=== PATIENT | female | born 1955 | race Caucasian/White ===

== ENCOUNTER → 2016-11-20 | Outpatient (REF) | payer MEDICAID ==
[~2016-11-20] MED LIST: /AUGM25TA; CIPRO500 PO; CLARITIN10 PO; DIOV80TA; DIOVAN160 PO; DIOVANHCT PO; EXCETAB80 PO; FLAGYL500 PO; HYDR12CA PO; HYDROCHL12 PO; LOSA100T36 PO; MENEST PO; METF500T4 PO; MULTIVIT PO; PREMARI625 PO; PRILOSECOT PO; RANI150T PO; VITA-130 PO; VITATAB11 PO
[2016-11-20 13:08] LABS: INR 0.88
== END ==
LOC: M LAB REF 12:26
PROVIDERS: ATTEND Family Medicine
DX: Z01.818 Encounter for other preprocedural examination (principal); M48.02 Spinal stenosis, cervical region

== ENCOUNTER → 2017-04-04 | Outpatient (CLI) | payer OTHER ==
[~2017-04-04] MED LIST changes: -VITA-130 PO; +VITA500T PO
--- NOTE | 2017-04-04 15:13 | REPMRS ---
Patient History The patient states she has not had a clinical breast exam in over a year. Patient is postmenopausal. Family history of prostate cancer in father at age 50 or over and breast cancer in maternal cousin at age 50 or over. Digital Woman Screen Mammo: April 04, 2017 - Exam #: [id number] Bilateral CC and MLO view(s) were taken. Technologist: Melissa Herrera, Technologist Prior study comparison: February 14, 2016, digital woman screen mammo performed at [facility]. September 08, 2013, digital woman screen mammo performed at [facility]. September 11, 2012, digital woman screen mammo performed at [facility]. FINDINGS: There are scattered fibroglandular densities. There is a stable nodular opacity projecting in the upper outer quadrant on the right. There has been other no change in the appearance of the mammogram from the prior studies. There is a mild amount of scattered fibroglandular density which is fairly symmetric. There is no interval development of dominant mass, architectural distortion, or clustered microcalcification suggestive of malignancy. ASSESSMENT: BI-RADS/ACR category 2 mammogram. Benign finding(s). Recommendation Routine screening mammogram in 1 year (for women over age 40). This mammogram was interpreted with the aid of an FDA-approved computer-aided dectection system. Electronically Signed By: Marshall Smith MD 04/04/17 2513
== END ==
LOC: M WHC 14:21
PROVIDERS: ATTEND Family Medicine
DX: Z12.31 Encounter for screening mammogram for malignant neoplasm of breast (principal); Z78.0 Asymptomatic menopausal state; Z80.3 Family history of malignant neoplasm of breast; R92.8 Other abnormal and inconclusive findings on diagnostic imaging of breast

== ENCOUNTER → 2018-06-19 | Outpatient (CLI) | payer MEDICARE | LOC: M WHC 10:30 | DX: Z12.31 Encounter for screening mammogram for malignant neoplasm of breast (principal) | CPT/HCPCS: 77067 ==

== ENCOUNTER → 2018-08-19 | Outpatient (REF) | payer MEDICARE ==
[2018-08-19 18:08] LABS: INFLUENZA A AMPLIFICATION NEGATIVE (NEGATIVE); INFLUENZA B AMPLIFICATION NEGATIVE (NEGATIVE)
== END ==
LOC: M LAB REF 16:37
DX: J06.9 Acute upper respiratory infection, unspecified (principal)
CPT/HCPCS: 87502

== ENCOUNTER → 2018-11-05 | Outpatient (REF) | payer MEDICARE ==
[~2018-11-05] MED LIST changes: -LOSA100T36 PO; +LOSA100T50 PO
== END ==
LOC: M LAB REF 16:36
PROVIDERS: ATTEND Nurse Practitioner Adult Health
DX: E03.9 Hypothyroidism, unspecified (principal)

== ENCOUNTER 2019-04-06 18:45 | Emergency (ER) | payer MEDICARE ==
[~2019-04-06] VITALS: Ht 165.1 cm; Wt 109.1 kg
[2019-04-06 19:23] LABS: BASO # 0.1 10^3/uL (0.0-0.2); BASO % 0.6 % (0.0-1.0); EOS # 0.4 10^3/uL (0.0-0.50); EOS % 5.4 % (0.0-3.0); HEMATOCRIT 37.4 % (36.0-47.0); HEMOGLOBIN 12.6 g/dl (12.0-15.5); LYMPH # 2.7 10^3/uL (1.5-4.5); LYMPH % 33.2 % (24.0-44.0); MEAN CORPUSCULAR HEMOGLOBIN 29.6 pg (27.0-33.0); MEAN CORPUSCULAR HGB CONC 33.7 g/dl (32.0-36.5); MEAN CORPUSCULAR VOLUME 87.8 fl (80.0-96.0); MONO # 0.8 10^3/uL (0.0-0.8); MONO % 9.6 % (0.0-5.0); NEUTROPHILS # 4.1 10^3/uL (1.8-7.7); NEUTROPHILS % 50.7 % (36.0-66.0); PLATELET COUNT, AUTOMATED 211 10^3/uL (150-450); RED BLOOD COUNT 4.26 10^6/uL (4.00-5.40)
[2019-04-06 19:35] LABS: INR 1.03; PROTHROMBIN TIME 13.2 SECONDS (11.8-14.0)
[2019-04-06 19:36] LABS: PARTIAL THROMBOPLASTIN TIME 26.3 SECONDS (25.0-38.4)
[2019-04-06 19:47] LABS: ALBUMIN 3.6 GM/DL (3.2-5.2); ALT/SGPT 43 U/L (12-78); BILIRUBIN,DIRECT < 0.1 MG/DL (0.0-0.2); BILIRUBIN,TOTAL 0.3 MG/DL (0.2-1.0); BLOOD UREA NITROGEN 15 MG/DL (7-18); CALCIUM LEVEL 9.6 MG/DL (8.8-10.2); CARBON DIOXIDE LEVEL 29 MEQ/L (21-32); CHLORIDE LEVEL 103 MEQ/L (98-107); CK-MB VALUE MASS 3.2 NG/ML (<3.6); CPK CREATINE PHOSPHOKINASE 309 U/L (26-192); CREATININE FOR GFR 0.95 MG/DL (0.55-1.30); GLOMERULAR FILTRATION RATE > 60.0 (>45); GLUCOSE, FASTING 192 MG/DL (70-100); LIPASE 137 U/L (73-393); MB/CK RELATIVE INDEX 1.04 (< OR =4); POTASSIUM SERUM 3.5 MEQ/L (3.5-5.1); SODIUM LEVEL 138 MEQ/L (136-145); TOTAL PROTEIN 6.6 GM/DL (6.4-8.2); TROPONIN I < 0.02 NG/ML (< 0.10)
[2019-04-06] MEDS: NITROGLYCERIN 0.4 MG SUBL TABLET SL PRN ×2 (19:55→20:28)
[2019-04-06] MEDS ORDERED: ISOVUE-370 76% 100ML VIAL (Q9967) As Ordered ONE (20:00)
--- NOTE | 2019-04-06 20:17 | ECGEPIP ---
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
[2019-04-06 20:28] VITALS: BP 137/73
--- NOTE | 2019-04-06 21:31 | REPVR ---
EXAM: CT Angiography Chest With Contrast EXAM DATE/TIME: 04/06/2019 8:07 PM CLINICAL HISTORY: 63 years old, female; Chest pain; Type not specified; Additional info: Pleuritic chest pain, SOB TECHNIQUE: Imaging protocol: Axial computed tomographic angiography images of the chest with intravenous contrast using CT angiography protocol. Coronal and sagittal reformatted images were created and reviewed. 3D rendering: MIP reconstructed images were created and reviewed. Radiation optimization: All CT scans at this facility use at least one of these dose optimization techniques: automated exposure control; mA and/or kV adjustment per patient size (includes targeted exams where dose is matched to clinical indication); or iterative reconstruction. Contrast material: ISOVUE 370; Contrast volume: 75 ml; Contrast route: IV; COMPARISON: CT ANGIO CHEST 05/20/2016 1:19 PM FINDINGS: Pulmonary arteries: No focal pulmonary artery filling defect to suggest acute pulmonary embolus. Aorta: No thoracic aortic aneurysm or dissection. Lungs: Pulmonary vascular/interstitial pattern does not suggest active pulmonary edema. No suspicious lung mass or air space process. No central endobronchial lesion. Pleural space: No pleural effusion or pneumothorax. Heart: No cardiac enlargement or pericardial effusion. Mediastinum: Hiatal hernia measuring 5 cm is present. Liver: Liver is decreased in density, consistent with fatty infiltration. Lymph nodes: Small, nonspecific mediastinal nodes are present. Bones/joints: Multi-level, age-related thoracic degenerative disc disease is present. Soft tissues: Unremarkable. IMPRESSION: 1. No evidence of acute pulmonary embolus. 2. No other acute or concerning focal intrathoracic abnormality. 3. Hiatal hernia, which can be a source of chest pain in the setting of GE reflux Electronically signed by: Moe Mcpherson On 04/06/2019 21:30:58 PM
[2019-04-06] MEDS ORDERED: NITROGLYCERIN 0.4 MG SUBL TABLET SL STA (22:17)
[2019-04-07 01:54] LABS: CK-MB VALUE MASS 2.8 NG/ML (<3.6); CPK CREATINE PHOSPHOKINASE 244 U/L (26-192); MB/CK RELATIVE INDEX 1.15 (< OR =4); TROPONIN I < 0.02 NG/ML (< 0.10)
[2019-04-07 02:24] VITALS: BP 151/67
--- NOTE | 2019-04-07 03:07 | REP ---
Clinical: Acute chest pain . Comparison: 11/05/2018 . Findings: The mediastinum and cardiac silhouette are stable and within normal limits for portable technique. The lung barron are clear without acute consolidation, effusion, or pneumothorax. Skeletal structures are intact. Impression: No acute cardiopulmonary process appreciated. Electronically Signed by Demetrio Patel MD 04/07/2019 02:58 A
--- NOTE | 2019-04-07 05:42 | ECGEPIP ---
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
--- NOTE | 2019-04-07 05:44 | ECGEPIP ---
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
== END 2019-04-07 02:53 | disposition home or self-care (01) ==
LOC: M ED 18:45
DX: R07.9 Chest pain, unspecified (principal); I45.19 Other right bundle-branch block; E11.9 Type 2 diabetes mellitus without complications; I10 Essential (primary) hypertension; F31.9 Bipolar disorder, unspecified; K44.9 Diaphragmatic hernia without obstruction or gangrene; M19.90 Unspecified osteoarthritis, unspecified site; M48.00 Spinal stenosis, site unspecified; Z79.84 Long term (current) use of oral hypoglycemic drugs; Z79.899 Other long term (current) drug therapy; Z88.8 Allergy status to other drugs, medicaments and biological substances; Z88.2 Allergy status to sulfonamides
CPT/HCPCS: 71045; 71275; 80048; 80076; 82550; 82553; 83690; 84484; 85025; 85610; 85730; 93005; 93041; 94760; 99285; Q9967

== ENCOUNTER 2019-09-03 07:38 | Day surgery (SDC) | payer MEDICARE ==
[~2019-09-03] VITALS: Ht 165.1 cm; Wt 108.9 kg
[~2019-09-03 07:38] MED LIST changes: +AMLO5TAB6 PO; +B COTAB3 PO; +BUPR1TAB52 PO; +EQL50TAB2 PO; +EXCETAB33 PO; +GLIM1TAB2 PO; +LAMO300T PO; +METF-791 PO; -METF500T4 PO; +NS 1,000 ML IV ONE; +VITA500079 PO
[2019-09-03] MEDS ORDERED: PROPOFOL 200 MG/20 ML VIAL As Ordered ONE ×2 (08:33→08:35)
--- NOTE | 2019-09-03 08:44 | ROOR ---
Patient Name: Janell Lizama Procedure Date: 09/03/2019 8:15 AM Date of : 1955 Age: 64 Room: [facility] Gender: Female Note Status: Finalized Procedure: Colonoscopy Indications: Screening for colorectal malignant neoplasm Providers: Stanley Sánchez Jr, MD Referring MD: Jason Toribio MD Requesting Provider: Medicines: Propofol per Anesthesia Complications: No immediate complications. Procedure: Pre-Anesthesia Assessment: - Prior to the procedure, a History and Physical was performed, and patient medications and allergies were reviewed. The patient is competent. The risks and benefits of the procedure and the sedation options and risks were discussed with the patient. All questions were answered and informed consent was obtained. Patient identification and proposed procedure were verified by the physician and the nurse in the pre-procedure area and in the procedure room. Mental Status Examination: alert and oriented. Airway Examination: normal oropharyngeal airway and neck mobility. Respiratory Examination: clear to auscultation. CV Examination: normal. ASA Grade Assessment: II - A patient with mild systemic disease. After reviewing the risks and benefits, the patient was deemed in satisfactory condition to undergo the procedure. The anesthesia plan was to use moderate sedation / analgesia (conscious sedation). Immediately prior to administration of medications, the patient was re-assessed for adequacy to receive sedatives. The heart rate, respiratory rate, oxygen saturations, blood pressure, adequacy of pulmonary ventilation, and response to care were monitored throughout the procedure. The physical status of the patient was re-assessed after the procedure. The Colonoscope was introduced through the anus and advanced to the ileocecal valve. The colonoscopy was performed with moderate difficulty due to restricted mobility of the colon. Successful completion of the procedure was aided by using manual pressure, withdrawing and reinserting the scope, straightening and shortening the scope to obtain bowel loop reduction and using scope torsion. The patient tolerated the procedure well. The quality of the bowel preparation was adequate. Findings: The rectum, recto-sigmoid colon, descending colon, transverse colon, ascending colon, cecum and ileocecal valve appeared normal. External and internal hemorrhoids were found during endoscopy. The hemorrhoids were Grade II (internal hemorrhoids that prolapse but reduce spontaneously) and Grade III (internal hemorrhoids that prolapse but require manual reduction). Multiple small-mouthed diverticula were found in the sigmoid colon.Significant angulation and some narrowing in the mid sigmoid colon. Impression: - The rectum, recto-sigmoid colon, descending colon, transverse colon, ascending colon, cecum and ileocecal valve are normal. - External and internal hemorrhoids. - Diverticulosis in the sigmoid colon. - No specimens collected. Recommendation: - Repeat colonoscopy in 10 years for screening purposes. Stanley Sánchez MD Stanley Sánchez Jr, MD 09/03/2019 8:43:10 AM Electronically signed by Stanley Sánchez Jr, MD Number of Addenda: 0 Note Initiated On: 09/03/2019 8:15 AM Estimated Blood Loss: Estimated blood loss: none.
[2019-09-03 09:00] VITALS: BP 178/92
== END 2019-09-03 09:10 | disposition home or self-care (01) ==
LOC: M OPP 07:38
PROVIDERS: ATTEND Surgery
DX: Z12.11 Encounter for screening for malignant neoplasm of colon (principal); K64.2 Third degree hemorrhoids; K57.30 Diverticulosis of large intestine without perforation or abscess without bleeding; E11.9 Type 2 diabetes mellitus without complications; G47.30 Sleep apnea, unspecified; Z79.84 Long term (current) use of oral hypoglycemic drugs; Z79.899 Other long term (current) drug therapy; Z88.2 Allergy status to sulfonamides; Z88.8 Allergy status to other drugs, medicaments and biological substances

== ENCOUNTER → 2019-12-03 | Outpatient (CLI) | payer MEDICARE ==
[~2019-12-03] MED LIST changes: -GLIM1TAB2 PO; +GLIM1TAB4 PO; -NS 1,000 ML IV ONE
--- NOTE | 2019-12-03 10:45 | REPMRS ---
Patient History The patient states she has not had a clinical breast exam in over a year. Family history of prostate cancer at age 50 or over in father, breast cancer at age 50 or over in maternal cousin. 3D TOMOSYNTHESIS WAS PERFORMED. The [facility] lifetime risk for breast cancer is 7.6%. Digital Woman Screen Mammo: December 03, 2019 - Exam #: [id number] Bilateral CC and MLO view(s) were taken. Technologist: RT Macy Prior study comparison: June 19, 2018, bilateral digital woman screen mammo performed at [facility]. April 04, 2017, digital woman screen mammo performed at [facility]. FINDINGS: There are scattered fibroglandular densities. There is a fairly symmetric fibroglandular pattern in both breasts. There has been no interval development of masses, areas of architectural distortion or clusters of microcalcifications typical of malignancy. No significant changes when compared with prior studies. Assessment: BI-RADS/ACR category 2 mammogram. Benign Findings. Recommendation Routine screening mammogram of both breasts in 1 year (for women over age 40). This mammogram was interpreted with the aid of an FDA-approved computer-aided dectection system. Electronically Signed By: Ganesh Frank MD 12/03/19 5501
== END ==
LOC: M WHC 09:52
PROVIDERS: ATTEND Nurse Practitioner Family
DX: Z12.31 Encounter for screening mammogram for malignant neoplasm of breast (principal)

== ENCOUNTER 2020-09-18 19:55 | Emergency (ER) | payer MEDICARE ==
[~2020-09-18] VITALS: Ht 165.1 cm; Wt 110.7 kg
[~2020-09-18 19:55] MED LIST changes: +AMLO1TAB24 PO; -AMLO5TAB6 PO; -METF-791 PO; +METF-838 PO; +VITA-243 PO; -VITA500T PO
[2020-09-18] MEDS ORDERED: FISH1000 PO (20:08)
[2020-09-18] MEDS ORDERED: METOCLOPRAMIDE 10 MG TAB PO ONE (21:15)
[2020-09-18] MEDS ORDERED: ACETAMINOPHEN 500 MG TAB PO ONE (21:15)
--- NOTE | 2020-09-18 21:39 | REPVR ---
PROCEDURE INFORMATION: Exam: CT Head Without Contrast Exam date and time: 09/18/2020 8:58 PM Age: 65 years old Clinical indication: Injury or trauma; Fall; Blunt trauma (contusions or hematomas); Additional info: Fall, hit head TECHNIQUE: Imaging protocol: Computed tomography of the head without contrast. Radiation optimization: All CT scans at this facility use at least one of these dose optimization techniques: automated exposure control; mA and/or kV adjustment per patient size (includes targeted exams where dose is matched to clinical indication); or iterative reconstruction. COMPARISON: CT Head without contrast 05/22/2016 2:26 AM FINDINGS: Brain: Normal. No hemorrhage. Unremarkable white matter. No mass effect. Cerebral ventricles: No ventriculomegaly. Bones/joints: Unremarkable. No acute fracture. Paranasal sinuses: Mucous retention cysts in the maxillary sinuses. Remaining paranasal sinuses are clear. Mastoid air cells: Visualized mastoid air cells are well aerated. Soft tissues: Unremarkable. IMPRESSION: No acute intracranial abnormality. Electronically signed by: Harish Vásquez On 09/18/2020 21:39:30 PM
--- NOTE | 2020-09-18 21:43 | REPVR ---
PROCEDURE INFORMATION: Exam: CT Cervical Spine Without Contrast Exam date and time: 09/18/2020 8:58 PM Age: 65 years old Clinical indication: Injury or trauma; Fall; Blunt trauma; Additional info: Fall, hit head TECHNIQUE: Imaging protocol: Computed tomography images of the cervical spine without contrast. Radiation optimization: All CT scans at this facility use at least one of these dose optimization techniques: automated exposure control; mA and/or kV adjustment per patient size (includes targeted exams where dose is matched to clinical indication); or iterative reconstruction. COMPARISON: MRI-Spine, Cervical with con 05/25/2016 5:42 PM FINDINGS: Bones/joints: Prior ACDF at C5-C6 and C6-C7. Normal vertebral body alignment. No acute fracture. Discs/Spinal canal/Neural foramina: Advanced discogenic degenerative changes throughout the cervical spine. No central spinal stenosis. Advanced facet degenerative changes. Lungs: Lung apices are normal. Soft tissues: Unremarkable. IMPRESSION: 1. No fracture or malalignment. 2. Advanced degenerative spondylosis as above. Electronically signed by: Harish Vásquez On 09/18/2020 21:43:54 PM
--- NOTE | 2020-09-18 21:54 | REPVR ---
PROCEDURE INFORMATION: Exam: CT Lumbar Spine Without Contrast Exam date and time: 09/18/2020 9:39 PM Age: 65 years old Clinical indication: Injury or trauma; Fall; Blunt trauma (contusions or hematomas); Additional info: Fall, PT tender TECHNIQUE: Imaging protocol: Computed tomography images of the lumbar spine without contrast. Radiation optimization: All CT scans at this facility use at least one of these dose optimization techniques: automated exposure control; mA and/or kV adjustment per patient size (includes targeted exams where dose is matched to clinical indication); or iterative reconstruction. COMPARISON: MRI-Spine, L.S. without con 05/24/2016 9:02 AM FINDINGS: Vertebrae: No acute fracture or malalignment. Discs/Spinal canal/Neural foramina: Mild endplate and discogenic degenerative changes. Degenerative changes cause mild spinal stenosis at L3-L4 and L4-L5. Advanced facet DJD and hypertrophy. Soft tissues: Unremarkable. IMPRESSION: 1. No fracture or malalignment. 2. Degenerative spondylosis as above. Mild spinal stenosis at L3-L4 and L4-L5. Electronically signed by: Harish Vásquez On 09/18/2020 21:55:13 PM
--- NOTE | 2020-09-18 21:56 | REPVR ---
PROCEDURE INFORMATION: Exam: XR Right Shoulder Exam date and time: 09/18/2020 9:27 PM Age: 65 years old Clinical indication: Pain; Shoulder; Right; Additional info: Pain, fall, tingling TECHNIQUE: Imaging protocol: XR Right shoulder. Views: 2 or more views. COMPARISON: No relevant prior studies available. FINDINGS: Bones/joints: Mild osteoarthritis. No acute fracture or malalignment. Prior cervical ACDF. Soft tissues: Normal. IMPRESSION: 1. Mild osteoarthritis. 2. No fracture or malalignment. Electronically signed by: Harish Vásquez On 09/18/2020 21:56:37 PM
--- NOTE | 2020-09-18 22:01 | REPVR ---
PROCEDURE INFORMATION: Exam: CT Thoracic Spine Without Contrast Exam date and time: 09/18/2020 9:39 PM Age: 65 years old Clinical indication: Injury or trauma; Fall; Blunt trauma (contusions or hematomas); Additional info: Fall, PT tender TECHNIQUE: Imaging protocol: Computed tomography images of the thoracic spine without contrast. Radiation optimization: All CT scans at this facility use at least one of these dose optimization techniques: automated exposure control; mA and/or kV adjustment per patient size (includes targeted exams where dose is matched to clinical indication); or iterative reconstruction. COMPARISON: MRI-Spine, Thoracic with con 05/25/2016 6:00 PM FINDINGS: Vertebrae: Prior cervical ACDF. Normal alignment. No acute fracture. Discs/Spinal canal/Neural foramina: Discogenic and facet degenerative changes throughout the thoracic spine. No spinal stenosis. Soft tissues: Unremarkable. Mediastinum: Small hiatal hernia. IMPRESSION: 1. No fracture or malalignment. 2. Degenerative spondylosis as above. 3. Small hiatal hernia. Electronically signed by: Harish Vásquez On 09/18/2020 22:01:43 PM
[2020-09-18 22:41] VITALS: BP 144/86
== END 2020-09-18 22:44 | disposition home or self-care (01) ==
LOC: M ED 19:55
DX: M54.9 Dorsalgia, unspecified (principal); R51.9 Headache, unspecified; M54.2 Cervicalgia; M25.511 Pain in right shoulder; W01.10XA Fall on same level from slipping, tripping and stumbling with subsequent striking against unspecified object, initial encounter; Y92.410 Unspecified street and highway as the place of occurrence of the external cause; Y93.9 Activity, unspecified; Y99.9 Unspecified external cause status; M47.816 Spondylosis without myelopathy or radiculopathy, lumbar region; M47.814 Spondylosis without myelopathy or radiculopathy, thoracic region; M47.812 Spondylosis without myelopathy or radiculopathy, cervical region; E11.9 Type 2 diabetes mellitus without complications; I10 Essential (primary) hypertension; E78.5 Hyperlipidemia, unspecified; Z79.84 Long term (current) use of oral hypoglycemic drugs; Z79.899 Other long term (current) drug therapy; Z88.8 Allergy status to other drugs, medicaments and biological substances; Z88.2 Allergy status to sulfonamides

== ENCOUNTER 2021-02-18 11:28 | Emergency (ER) | payer MEDICARE ==
[~2021-02-18] VITALS: Ht 165.1 cm; Wt 105.9 kg
[~2021-02-18 11:28] MED LIST changes: +FISH1000 PO
--- NOTE | 2021-02-18 12:17 | REP ---
INDICATION: dizzy COMPARISON: 09/18/2020 TECHNIQUE: Axial noncontrast images from the skull base to the thoracic inlet with coronal reformations. This CT examination was performed using the following dose reduction techniques: Automated exposure control, adjustment of mA and/or kv according to the patient's size, and use of iterative reconstruction technique. FINDINGS: Atrophy with periventricular leukomalacia and microvascular ischemic changes are appreciated. The ventricles and sulci are symmetric. Frank-white differentiation is maintained. There is no evidence for acute intracranial hemorrhage, mass/mass effect, pathology or infarction. No extra-axial fluid collection. Calvarium is intact. Paranasal sinuses and mastoid air cells are clear. IMPRESSION: Atrophy and microvascular ischemic changes. No acute intracranial hemorrhage, infarction, or mass/mass effect. <Electronically signed by Demetrio Patel > 02/18/21 [id number]
--- NOTE | 2021-02-18 12:20 | REP ---
INDICATION: CHEST PAIN COMPARISON: 04/06/2019 TECHNIQUE: Portable AP view of the chest FINDINGS: The mediastinum and cardiac silhouette are stable and within normal limits for portable technique. The lung barron are clear without acute consolidation, effusion, or pneumothorax. Skeletal structures are intact. IMPRESSION: No acute cardiopulmonary process appreciated. <Electronically signed by Demetrio Patel > 02/18/21 2101
[2021-02-18 12:44] LABS: BASO % 0.7 % (0.0-1.0); EOS # 0.4 10^3/uL (0.0-0.5); EOS % 7.5 % (0.0-3.0); HEMATOCRIT 35.8 % (36.0-47.0); HEMOGLOBIN 11.7 g/dl (12.0-15.5); LYMPH # 2.1 10^3/uL (1.5-5.0); LYMPH % 37.3 % (24.0-44.0); MEAN CORPUSCULAR HEMOGLOBIN 28.2 pg (27.0-33.0); MEAN CORPUSCULAR HGB CONC 32.7 g/dl (32.0-36.5); MEAN CORPUSCULAR VOLUME 86.3 fl (80.0-96.0); MONO # 0.6 10^3/uL (0.0-0.8); MONO % 9.9 % (2.0-8.0); NEUTROPHILS # 2.5 10^3/uL (1.5-8.5); NEUTROPHILS % 43.7 % (36.0-66.0); PLATELET COUNT, AUTOMATED 204 10^3/uL (150-450); RED BLOOD COUNT 4.15 10^6/uL (4.00-5.40); WHITE BLOOD COUNT 5.7 10^3/uL (4.0-10.0)
[2021-02-18 13:23] LABS: ALBUMIN 3.4 GM/DL (3.2-5.2); ALT/SGPT 34 U/L (12-78); BILIRUBIN,DIRECT < 0.1 MG/DL (0.0-0.2); BILIRUBIN,TOTAL 0.3 MG/DL (0.2-1.0); BLOOD UREA NITROGEN 11 MG/DL (7-18); CALCIUM LEVEL 9.8 MG/DL (8.8-10.2); CARBON DIOXIDE LEVEL 26 MEQ/L (21-32); CHLORIDE LEVEL 108 MEQ/L (98-107); CPK CREATINE PHOSPHOKINASE 192 U/L (26-192); CREATININE FOR GFR 0.85 MG/DL (0.55-1.30); FREE T4 1.04 NG/DL (0.76-1.46); GLOMERULAR FILTRATION RATE > 60.0 (>45); GLUCOSE, FASTING 230 MG/DL (70-100); LIPASE 93 U/L (73-393); MB/CK RELATIVE INDEX 1.04 (< OR =4); NT-PRO BNP 31 PG/ML (<125); POTASSIUM SERUM 3.9 MEQ/L (3.5-5.1); SODIUM LEVEL 141 MEQ/L (136-145); THYROID STIMULATING HORMONE 0.232 uIU/ML (0.358-3.740); TOTAL PROTEIN 6.3 GM/DL (6.4-8.2); TROPONIN I < 0.02 NG/ML (< 0.10)
[2021-02-18] MEDS ORDERED: MECL-86 PO (14:42)
[2021-02-18 14:59] VITALS: BP 144/72
--- NOTE | 2021-02-18 19:51 | ECGEPIP ---
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
== END 2021-02-18 15:10 | disposition home or self-care (01) ==
LOC: EDBD 11:28 → M ED 11:28
DX: R00.2 Palpitations (principal); R42 Dizziness and giddiness; E11.9 Type 2 diabetes mellitus without complications; E78.5 Hyperlipidemia, unspecified; Z88.2 Allergy status to sulfonamides; Z79.899 Other long term (current) drug therapy

== ENCOUNTER → 2021-03-14 | Outpatient (CLI) | payer MEDICARE ==
[~2021-03-14] MED LIST changes: +MECL-86 PO
--- NOTE | 2021-03-14 09:41 | REP ---
INDICATION: CONTUSION COMPARISON: None. TECHNIQUE: AP, lateral, flexion/extension, bilateral oblique, and open-mouth views. FINDINGS: Alignment is maintained. Evidence for prior anterior fixation and C5-C7. Moderate degenerative changes include anterior osteophytosis, and minimal disc space narrowing at C2-3 through C4-5. Oblique views demonstrate left-sided facet hypertrophy and possible narrowing to the neural foramen. Open mouth view demonstrates normal C1-C2 articulation and odontoid process. No acute fracture/compression injury or subluxation. IMPRESSION: Postsurgical changes and moderate multilevel degenerative spondylosis. <Electronically signed by Demetrio Patel > 03/14/21 0953
--- NOTE | 2021-03-14 09:43 | REP ---
INDICATION: CONTUSION COMPARISON: None. TECHNIQUE: AP, lateral, and swimmers views. FINDINGS: Alignment and kyphosis maintained. Moderate multilevel degenerative changes include endplate sclerosis, marginal osteophytosis, and disc space narrowing. No acute fracture/compression injury or subluxation. IMPRESSION: Moderate multilevel degenerative changes. <Electronically signed by Demetrio Patel > 03/14/21 0927
--- NOTE | 2021-03-14 09:48 | REP ---
INDICATION: CERVICALGIA COMPARISON: None. TECHNIQUE: Frontal view of the chest with multiple views of the right hemithorax. Six total views. FINDINGS: Frontal view of the chest demonstrates no acute cardiopulmonary process, contusion, effusion, or pneumothorax. Multiple views of the right hemithorax demonstrates no acute rib fracture/injury or pathology. IMPRESSION: No obvious right rib fracture or pathology appreciated. <Electronically signed by Demetrio Patel > 03/14/21 0944
== END ==
LOC: M WUC 08:56
PROVIDERS: ATTEND Physician Assistant
DX: M54.2 Cervicalgia (principal); S20.223A Contusion of bilateral back wall of thorax, initial encounter; X58.XXXA Exposure to other specified factors, initial encounter; Y92.9 Unspecified place or not applicable; M47.812 Spondylosis without myelopathy or radiculopathy, cervical region; M51.34 Other intervertebral disc degeneration, thoracic region

== ENCOUNTER → 2021-04-03 | Outpatient (REF) | payer MEDICARE | LOC: M LAB REF 13:16 | PROVIDERS: ATTEND Physician Assistant | DX: H02.831 Dermatochalasis of right upper eyelid (principal) ==

== ENCOUNTER → 2021-11-14 | Outpatient (REF) | payer MEDICARE ==
[~2021-11-14] MED LIST changes: +LOSA100T45 PO; -LOSA100T50 PO
== END ==
LOC: M LAB REF 12:30
PROVIDERS: ATTEND Family Medicine
DX: E05.00 Thyrotoxicosis with diffuse goiter without thyrotoxic crisis or storm (principal)

== ENCOUNTER → 2022-01-01 | Outpatient (CLI) | payer MEDICARE ==
[2022-01-01 17:59] LABS: BLOOD UREA NITROGEN 13 MG/DL (7-18); CALCIUM LEVEL 10.6 MG/DL (8.8-10.2); CARBON DIOXIDE LEVEL 27 MEQ/L (21-32); CHLORIDE LEVEL 105 MEQ/L (98-107); CREATININE FOR GFR 0.73 MG/DL (0.55-1.30); GLOMERULAR FILTRATION RATE > 60.0 (>45); GLUCOSE, FASTING 158 MG/DL (70-100); POTASSIUM SERUM 4.3 MEQ/L (3.5-5.1); SODIUM LEVEL 139 MEQ/L (136-145)
== END ==
LOC: M LAB 15:30
PROVIDERS: ATTEND Nurse Practitioner Family
DX: E11.65 Type 2 diabetes mellitus with hyperglycemia (principal)

== ENCOUNTER → 2022-01-04 | Outpatient (CLI) | payer MEDICARE ==
[~2022-01-04] MED LIST changes: +PROHANCE 279.3MG/ML 5ML VIAL As Ordered ONE
== END ==
LOC: M RAD 08:15
PROVIDERS: ATTEND Nurse Practitioner Family
DX: E23.6 Other disorders of pituitary gland (principal)
CPT/HCPCS: 70553; A9576

== ENCOUNTER → 2022-01-19 | Outpatient (CLI) | payer MEDICARE ==
[~2022-01-19] MED LIST changes: +EXCETAB32 PO; -EXCETAB33 PO; -PROHANCE 279.3MG/ML 5ML VIAL As Ordered ONE
[2022-01-19 15:56] LABS: BLOOD UREA NITROGEN 11 MG/DL (7-18); CALCIUM LEVEL 10.2 MG/DL (8.8-10.2); CARBON DIOXIDE LEVEL 28 MEQ/L (21-32); CHLORIDE LEVEL 104 MEQ/L (98-107); CREATININE FOR GFR 0.81 MG/DL (0.55-1.30); FREE T4 1.17 NG/DL (0.76-1.46); GLOMERULAR FILTRATION RATE > 60.0 (>45); GLUCOSE, FASTING 260 MG/DL (70-100); POTASSIUM SERUM 4.1 MEQ/L (3.5-5.1); SODIUM LEVEL 141 MEQ/L (136-145); THYROID STIMULATING HORMONE 0.032 uIU/ML (0.358-3.740)
[2022-01-19 15:59] LABS: FOLLICLE STIMULATING HORMONE 35.6 mIU/mL; LUTEINIZING HORMONE 10.3 mIU/mL; PROLACTIN 4.7 NG/ML
== END ==
LOC: M PLALAB 01-11 15:06
PROVIDERS: ATTEND Nurse Practitioner Family
DX: E23.6 Other disorders of pituitary gland (principal); E05.00 Thyrotoxicosis with diffuse goiter without thyrotoxic crisis or storm

== ENCOUNTER 2022-02-20 15:26 | Emergency (ER) | payer MEDICARE ==
[~2022-02-20] VITALS: Ht 165.1 cm; Wt 102.3 kg
[2022-02-20] MEDS ORDERED: FARX1TAB5 (15:43)
[2022-02-20] MEDS ORDERED: METF500T13 (15:43)
[2022-02-20 16:23] LABS: BASO % 0.6 % (0.0-1.0); EOS # 0.4 10^3/uL (0.0-0.5); EOS % 5.2 % (0.0-3.0); HEMATOCRIT 41.1 % (36.0-47.0); HEMOGLOBIN 13.7 g/dl (12.0-15.5); LYMPH # 2.3 10^3/uL (1.5-5.0); LYMPH % 32.2 % (24.0-44.0); MEAN CORPUSCULAR HEMOGLOBIN 28.7 pg (27.0-33.0); MEAN CORPUSCULAR HGB CONC 33.3 g/dl (32.0-36.5); MEAN CORPUSCULAR VOLUME 86.2 fl (80.0-96.0); MONO # 0.6 10^3/uL (0.0-0.8); MONO % 9.1 % (2.0-8.0); NEUTROPHILS # 3.7 10^3/uL (1.5-8.5); NEUTROPHILS % 52.2 % (36.0-66.0); PLATELET COUNT, AUTOMATED 233 10^3/uL (150-450); RED BLOOD COUNT 4.77 10^6/uL (4.00-5.40); WHITE BLOOD COUNT 7.1 10^3/uL (4.0-10.0)
[2022-02-20] MEDS ORDERED: MORPHINE 4 MG/ML 1ML VIAL/SYRINGE IV ONE (16:25)
[2022-02-20 16:53] LABS: CK-MB VALUE MASS 2.8 NG/ML (<3.6); MB/CK RELATIVE INDEX 1.35 (< OR =4)
[2022-02-20 16:54] LABS: ALBUMIN 4.1 GM/DL (3.2-5.2); ALT/SGPT 39 U/L (12-78); BILIRUBIN,DIRECT < 0.1 MG/DL (0.0-0.2); BILIRUBIN,TOTAL 0.3 MG/DL (0.2-1.0); BLOOD UREA NITROGEN 15 MG/DL (7-18); CALCIUM LEVEL 10.4 MG/DL (8.8-10.2); CARBON DIOXIDE LEVEL 24 MEQ/L (21-32); CHLORIDE LEVEL 106 MEQ/L (98-107); CREATININE FOR GFR 0.96 MG/DL (0.55-1.30); GLOMERULAR FILTRATION RATE > 60.0 (>45); GLUCOSE, FASTING 209 MG/DL (70-100); LIPASE 167 U/L (73-393); NT-PRO BNP 61 PG/ML (<125); POTASSIUM SERUM 4.1 MEQ/L (3.5-5.1); SODIUM LEVEL 140 MEQ/L (136-145); TOTAL PROTEIN 7.5 GM/DL (6.4-8.2)
[2022-02-20] MEDS ORDERED: ISOVUE-370 76% 100ML VIAL As Ordered ONE (17:43)
[2022-02-20 17:46] LABS: CK-MB VALUE MASS 2.6 NG/ML (<3.6); MB/CK RELATIVE INDEX 1.33 (< OR =4)
[2022-02-20 19:30] VITALS: BP 176/94
== END 2022-02-20 20:11 | disposition home or self-care (01) ==
LOC: M ED 15:26
DX: R07.9 Chest pain, unspecified (principal); R91.1 Solitary pulmonary nodule; E04.1 Nontoxic single thyroid nodule; E27.9 Disorder of adrenal gland, unspecified; K44.9 Diaphragmatic hernia without obstruction or gangrene; I51.9 Heart disease, unspecified; E11.9 Type 2 diabetes mellitus without complications; I10 Essential (primary) hypertension; E78.5 Hyperlipidemia, unspecified; J45.909 Unspecified asthma, uncomplicated; F31.9 Bipolar disorder, unspecified; Z79.84 Long term (current) use of oral hypoglycemic drugs; Z79.899 Other long term (current) drug therapy; Z88.2 Allergy status to sulfonamides; Z88.8 Allergy status to other drugs, medicaments and biological substances
CPT/HCPCS: 71045; 71275; 80048; 80076; 82550; 82553; 83690; 83880; 84484; 85025; 93005; 93041; 94760; 96374; 99285; J2270; Q9967

== ENCOUNTER → 2022-04-19 | Outpatient (CLI) | payer MEDICARE ==
[~2022-04-19] MED LIST changes: +FARX1TAB5; +METF500T13
== END ==
LOC: M RAD 07:10
PROVIDERS: ATTEND Internal Medicine Endocrinology, Diabetes & Metabolism
DX: E05.00 Thyrotoxicosis with diffuse goiter without thyrotoxic crisis or storm (principal)
CPT/HCPCS: 78012; A9516

== ENCOUNTER → 2022-04-26 | Outpatient (CLI) | payer MEDICARE | LOC: M WHC 15:21 | PROVIDERS: ATTEND Family Medicine | DX: Z12.31 Encounter for screening mammogram for malignant neoplasm of breast (principal) ==

== ENCOUNTER → 2022-06-12 | Outpatient (REF) | payer MEDICARE | LOC: M LAB REF 12:16 | PROVIDERS: ATTEND Family Medicine | DX: E05.00 Thyrotoxicosis with diffuse goiter without thyrotoxic crisis or storm (principal) ==

== ENCOUNTER → 2022-06-13 | Outpatient (CLI) | payer MEDICARE | LOC: M WUC 15:40 | PROVIDERS: ATTEND Family Medicine | DX: M25.711 Osteophyte, right shoulder (principal) ==

== ENCOUNTER → 2022-07-17 | Outpatient (CLI) | payer MEDICARE ==
[2022-07-17 18:21] LABS: THYROID STIMULATING HORMONE 0.249 uIU/ML (0.358-3.740)
[2022-07-17 18:53] LABS: TOTAL T3 68.4 NG/DL (60.0-181.0)
== END ==
LOC: M PLALAB 16:05
PROVIDERS: ATTEND Internal Medicine Endocrinology, Diabetes & Metabolism
DX: E05.00 Thyrotoxicosis with diffuse goiter without thyrotoxic crisis or storm (principal)

== ENCOUNTER 2023-03-28 17:58 | Emergency (ER) | payer BC, MEDICARE, OTHER ==
[~2023-03-28] VITALS: Ht 165.1 cm; Wt 99.1 kg
[~2023-03-28 17:58] MED LIST changes: -LOSA100T45 PO; +LOSA100T46 PO
[2023-03-28 17:59] VITALS: TEMP 97.9
[2023-03-28] MEDS ORDERED: NS 1,000 ML IV ONE (19:40)
[2023-03-28] MEDS ORDERED: KETOROLAC 30 MG/ML 1ML VIAL IV ONE (19:40)
[2023-03-28] MEDS ORDERED: ONDANSETRON 4MG 2ML VIAL IV ONE (19:40)
[2023-03-28 20:26] LABS: BASO % 0.4 % (0.0-1.0); EOS # 0.4 10^3/uL (0.0-0.5); EOS % 5.4 % (0.0-3.0); HEMATOCRIT 39.6 % (36.0-47.0); HEMOGLOBIN 13.2 g/dl (12.0-15.5); LYMPH # 3.5 10^3/uL (1.5-5.0); LYMPH % 46.6 % (24.0-44.0); MEAN CORPUSCULAR HEMOGLOBIN 28.3 pg (27.0-33.0); MEAN CORPUSCULAR HGB CONC 33.3 g/dl (32.0-36.5); MEAN CORPUSCULAR VOLUME 84.8 fl (80.0-96.0); MONO # 0.6 10^3/uL (0.0-0.8); NEUTROPHILS % 39.1 % (36.0-66.0); PLATELET COUNT, AUTOMATED 216 10^3/uL (150-450); RED BLOOD COUNT 4.67 10^6/uL (4.00-5.40); WHITE BLOOD COUNT 7.6 10^3/uL (4.0-10.0)
[2023-03-28 20:50] LABS: MAGNESIUM LEVEL 2.2 MG/DL (1.8-2.4)
[2023-03-28 20:55] LABS: FREE T4 1.04 NG/DL (0.89-1.76); THYROID STIMULATING HORMONE 0.322 uIU/ML (0.55-4.78)
[2023-03-28 21:13] VITALS: O2SAT 95
[2023-03-28 21:15] VITALS: BP 153/93
[2023-03-28] MEDS ORDERED: MECL1TAB31 PO (21:15)
== END 2023-03-28 21:35 | disposition home or self-care (01) ==
LOC: M ED 17:58
DX: R51.9 Headache, unspecified (principal); R42 Dizziness and giddiness; M54.2 Cervicalgia; E66.9 Obesity, unspecified; E11.9 Type 2 diabetes mellitus without complications; I10 Essential (primary) hypertension; E78.5 Hyperlipidemia, unspecified; G47.33 Obstructive sleep apnea (adult) (pediatric); F32.A Depression, unspecified; K21.9 Gastro-esophageal reflux disease without esophagitis; K57.92 Diverticulitis of intestine, part unspecified, without perforation or abscess without bleeding; J45.909 Unspecified asthma, uncomplicated; Z79.84 Long term (current) use of oral hypoglycemic drugs; Z79.899 Other long term (current) drug therapy; Z88.2 Allergy status to sulfonamides; Z88.8 Allergy status to other drugs, medicaments and biological substances
CPT/HCPCS: 70450; 71045; 72125; 80047; 83735; 84439; 84443; 85025; 96361; 96374; 96375; 99284; J1885; J2405

== ENCOUNTER → 2023-04-10 | Outpatient (CLI) | payer MEDICARE ==
[~2023-04-10] MED LIST changes: +MECL1TAB31 PO
== END ==
LOC: M RAD 07:26
PROVIDERS: ATTEND Family Medicine
DX: K76.0 Fatty (change of) liver, not elsewhere classified (principal); D17.71 Benign lipomatous neoplasm of kidney; R10.11 Right upper quadrant pain

== ENCOUNTER → 2023-07-24 | Outpatient (CLI) | payer MEDICARE ==
[~2023-07-24] MED LIST changes: +MECL-209 PO; -MECL1TAB31 PO
== END ==
LOC: M WHC 14:40
PROVIDERS: ATTEND Family Medicine
DX: Z12.31 Encounter for screening mammogram for malignant neoplasm of breast (principal)

== ENCOUNTER 2023-07-25 09:38 | Emergency (ER) | payer MEDICARE ==
[~2023-07-25] VITALS: Ht 165.1 cm; Wt 102.2 kg
[2023-07-25 11:46] VITALS: BP 124/71; TEMP 97.6; O2SAT 98
== END 2023-07-25 12:02 | disposition home or self-care (01) ==
LOC: M ED 09:38
DX: F31.9 Bipolar disorder, unspecified (principal); E11.9 Type 2 diabetes mellitus without complications; M54.50 Low back pain, unspecified; Z88.2 Allergy status to sulfonamides; Z88.8 Allergy status to other drugs, medicaments and biological substances; Z79.4 Long term (current) use of insulin; Z79.811 Long term (current) use of aromatase inhibitors; Z79.899 Other long term (current) drug therapy

== ENCOUNTER → 2023-12-12 | Outpatient (CLI) | payer MEDICARE | LOC: M PLARAD 11:12 | PROVIDERS: ATTEND Family Medicine | DX: E27.8 Other specified disorders of adrenal gland (principal); D41.12 Neoplasm of uncertain behavior of left renal pelvis; N28.1 Cyst of kidney, acquired; N28.89 Other specified disorders of kidney and ureter ==

== ENCOUNTER 2024-01-21 11:50 | Emergency (ER) | payer MEDICARE ==
[~2024-01-21] VITALS: Ht 165.1 cm; Wt 103.6 kg
[~2024-01-21 11:50] MED LIST changes: -GLIM1TAB4 PO; +GLIM1TAB84 PO
[2024-01-21 13:32] LABS: BASO # 0.1 10^3/uL (0.0-0.2); BASO % 0.7 % (0.0-1.0); EOS # 0.4 10^3/uL (0.0-0.5); EOS % 5.7 % (0.0-3.0); HEMATOCRIT 39.1 % (36.0-47.0); HEMOGLOBIN 13.2 g/dl (12.0-15.5); LYMPH # 2.2 10^3/uL (1.5-5.0); MEAN CORPUSCULAR HEMOGLOBIN 29.1 pg (27.0-33.0); MEAN CORPUSCULAR HGB CONC 33.8 g/dl (32.0-36.5); MEAN CORPUSCULAR VOLUME 86.3 fl (80.0-96.0); MONO # 0.6 10^3/uL (0.0-0.8); MONO % 9.4 % (2.0-8.0); NEUTROPHILS # 3.5 10^3/uL (1.5-8.5); NEUTROPHILS % 51.8 % (36.0-66.0); PLATELET COUNT, AUTOMATED 208 10^3/uL (150-450); RED BLOOD COUNT 4.53 10^6/uL (4.00-5.40); WHITE BLOOD COUNT 6.8 10^3/uL (4.0-10.0)
[2024-01-21] MEDS: ACETAMINOPHEN 500 MG TAB PO ONE (13:54)
[2024-01-21] MEDS ORDERED: ISOVUE-370 76% 100ML VIAL As Ordered ONE (13:55)
[2024-01-21 15:45] VITALS: BP 148/72; TEMP 97.4; O2SAT 96
== END 2024-01-21 16:22 | disposition home or self-care (01) ==
LOC: M ED 11:50 → EDBD 11:50 → M ED 16:22
DX: S09.90XA Unspecified injury of head, initial encounter (principal); W18.30XA Fall on same level, unspecified, initial encounter; M19.011 Primary osteoarthritis, right shoulder; Y92.480 Sidewalk as the place of occurrence of the external cause; Y93.89 Activity, other specified; Y99.9 Unspecified external cause status; E11.9 Type 2 diabetes mellitus without complications; I10 Essential (primary) hypertension; J45.909 Unspecified asthma, uncomplicated; F32.A Depression, unspecified; M54.2 Cervicalgia; R16.0 Hepatomegaly, not elsewhere classified; K76.0 Fatty (change of) liver, not elsewhere classified; K57.30 Diverticulosis of large intestine without perforation or abscess without bleeding; M47.9 Spondylosis, unspecified; Z79.84 Long term (current) use of oral hypoglycemic drugs; Z79.899 Other long term (current) drug therapy; Z88.2 Allergy status to sulfonamides; Z88.8 Allergy status to other drugs, medicaments and biological substances
CPT/HCPCS: 70450; 71101; 72125; 72131; 73030; 74177; 80047; 85025; 99284; Q9967

== ENCOUNTER 2024-03-16 16:46 | Emergency (ER) | payer MEDICARE ==
[~2024-03-16] VITALS: Ht 165.1 cm; Wt 102.3 kg
[2024-03-16] MEDS: NS 500 ML IV ONE (17:48)
[2024-03-16 19:22] LABS: BASO % 0.6 % (0.0-1.0); EOS # 0.4 10^3/uL (0.0-0.5); EOS % 6.1 % (0.0-3.0); HEMATOCRIT 40.3 % (36.0-47.0); HEMOGLOBIN 13.7 g/dl (12.0-15.5); LYMPH # 2.6 10^3/uL (1.5-5.0); LYMPH % 39.8 % (24.0-44.0); MEAN CORPUSCULAR HEMOGLOBIN 28.9 pg (27.0-33.0); MONO # 0.6 10^3/uL (0.0-0.8); MONO % 9.7 % (2.0-8.0); NEUTROPHILS # 2.9 10^3/uL (1.5-8.5); NEUTROPHILS % 43.3 % (36.0-66.0); PLATELET COUNT, AUTOMATED 242 10^3/uL (150-450); RED BLOOD COUNT 4.74 10^6/uL (4.00-5.40); WHITE BLOOD COUNT 6.6 10^3/uL (4.0-10.0)
[2024-03-16 19:33] LABS: INR 0.91; PARTIAL THROMBOPLASTIN TIME 25.8 SECONDS (24.8-34.2)
[2024-03-16 19:40] LABS: CK-MB VALUE MASS 1.9 NG/ML (<3.6)
[2024-03-16 19:41] LABS: C REACTIVE PROTEIN QUANTITATIV < 0.40 MG/DL (<1.0); LIPASE 41 U/L (12-53)
[2024-03-16 19:42] LABS: CPK CREATINE PHOSPHOKINASE 184 U/L (34-145); MB/CK RELATIVE INDEX 1.03 (< OR =4)
[2024-03-16 19:43] LABS: ALBUMIN 4.1 G/DL (3.2-5.2); ALKALINE PHOSPHATASE 153 U/L (46-116); ALT/SGPT 27 U/L (7.0-40); AST/SGOT 9 U/L (<34); BILIRUBIN,DIRECT < 0.1 MG/DL (<0.4); BILIRUBIN,TOTAL 0.3 MG/DL (0.3-1.2); BLOOD UREA NITROGEN 17 MG/DL (9-23); CALCIUM LEVEL 10.5 MG/DL (8.3-10.6); CARBON DIOXIDE LEVEL 26 MMOL/L (20-31); CHLORIDE LEVEL 104 MMOL/L (98-107); CREATININE FOR GFR 0.86 MG/DL (0.55-1.30); GLOMERULAR FILTRATION RATE > 60.0 (>45); GLUCOSE, FASTING 189 MG/DL (74-106); SODIUM LEVEL 138 MMOL/L (136-145); TOTAL PROTEIN 7.1 G/DL (5.7-8.2)
[2024-03-16 19:44] LABS: THYROID STIMULATING HORMONE 0.333 uIU/ML (0.55-4.78)
[2024-03-16 19:45] VITALS: TEMP 98.6
[2024-03-16 19:45] LABS: FREE T4 1.19 NG/DL (0.89-1.76)
[2024-03-16 19:52] LABS: CK-MB VALUE MASS 1.7 NG/ML (<3.6)
[2024-03-16] MEDS ORDERED: ISOVUE-370 76% 100ML VIAL As Ordered ONE (19:52)
[2024-03-16 19:54] LABS: MB/CK RELATIVE INDEX 1.02 (< OR =4)
[2024-03-16] MEDS: ASPIRIN 81MG CHEW TABLET PO ONE (22:35)
[2024-03-16] MEDS ORDERED: HOLTER MONITOR XX ×2 (22:36→22:39)
[2024-03-16] MEDS ORDERED: ASPI81TA26 PO (22:36)
[2024-03-16 23:10] VITALS: BP 135/86; O2SAT 93
== END 2024-03-16 23:11 | disposition home or self-care (01) ==
LOC: M ED 16:46
DX: R07.89 Other chest pain (principal); I10 Essential (primary) hypertension; E78.5 Hyperlipidemia, unspecified; E66.9 Obesity, unspecified; F31.9 Bipolar disorder, unspecified; E11.9 Type 2 diabetes mellitus without complications; M50.321 Other cervical disc degeneration at C4-C5 level; M50.33 Other cervical disc degeneration, cervicothoracic region; Z79.84 Long term (current) use of oral hypoglycemic drugs; Z79.899 Other long term (current) drug therapy; Z88.2 Allergy status to sulfonamides; Z88.8 Allergy status to other drugs, medicaments and biological substances
CPT/HCPCS: 71275; 72125; 80048; 80076; 82550; 82553; 83690; 83880; 84439; 84443; 84484; 85025; 85610; 85730; 86140; 93005; 93041; 94760; 96360; 99285; Q9967

== ENCOUNTER 2024-03-18 14:19 | Emergency (ER) | payer MEDICARE ==
[~2024-03-18] VITALS: Ht 165.1 cm; Wt 104.2 kg
[~2024-03-18 14:19] MED LIST changes: -ARIP1TAB4; -FAMO40TA3; -NAPR-885; -ONDA-282 PO; -SUMA50TA2; -TIZA10TA; -TOPI-21
[2024-03-18 14:21] VITALS: TEMP 97.7
[2024-03-18] MEDS ORDERED: SUMA50TA2 (14:37)
[2024-03-18] MEDS ORDERED: FAMO40TA3 (14:37)
[2024-03-18] MEDS ORDERED: TIZA10TA (14:37)
[2024-03-18] MEDS ORDERED: NAPR-885 (14:37)
[2024-03-18] MEDS ORDERED: TOPI-21 (14:37)
[2024-03-18] MEDS ORDERED: ARIP1TAB4 (14:37)
[2024-03-18] MEDS: ONDANSETRON 4MG ORAL DISINTEGRATING TAB PO ONE (15:59)
[2024-03-18] MEDS: NS 1,000 ML IV ONE (16:58)
[2024-03-18 17:03] LABS: BASO # 0.1 10^3/uL (0.0-0.2); BASO % 0.8 % (0.0-1.0); EOS # 0.4 10^3/uL (0.0-0.5); EOS % 4.9 % (0.0-3.0); HEMATOCRIT 44.4 % (36.0-47.0); HEMOGLOBIN 14.6 g/dl (12.0-15.5); LYMPH # 2.6 10^3/uL (1.5-5.0); LYMPH % 32.7 % (24.0-44.0); MEAN CORPUSCULAR HEMOGLOBIN 28.3 pg (27.0-33.0); MEAN CORPUSCULAR HGB CONC 32.9 g/dl (32.0-36.5); MONO # 0.6 10^3/uL (0.0-0.8); MONO % 7.9 % (2.0-8.0); NEUTROPHILS # 4.1 10^3/uL (1.5-8.5); NEUTROPHILS % 51.8 % (36.0-66.0); PLATELET COUNT, AUTOMATED 243 10^3/uL (150-450); RED BLOOD COUNT 5.16 10^6/uL (4.00-5.40); WHITE BLOOD COUNT 7.8 10^3/uL (4.0-10.0)
[2024-03-18 17:18] LABS: CK-MB VALUE MASS 2.8 NG/ML (<3.6); MAGNESIUM LEVEL 2.1 MG/DL (1.8-2.4)
[2024-03-18 17:20] LABS: MB/CK RELATIVE INDEX 1.51 (< OR =4)
[2024-03-18 19:15] LABS: CK-MB VALUE MASS 1.5 NG/ML (<3.6)
[2024-03-18 19:16] LABS: MB/CK RELATIVE INDEX 0.98 (< OR =4)
[2024-03-18] MEDS: FAMOTIDINE 20 MG TAB PO ONE (19:40)
[2024-03-18 19:45] VITALS: BP 161/89; O2SAT 96
[2024-03-18] MEDS ORDERED: ONDA-282 PO (19:59)
== END 2024-03-18 20:07 | disposition home or self-care (01) ==
LOC: M ED 14:19
DX: R00.2 Palpitations (principal); F07.81 Postconcussional syndrome; E11.9 Type 2 diabetes mellitus without complications; I10 Essential (primary) hypertension; E78.5 Hyperlipidemia, unspecified; K21.9 Gastro-esophageal reflux disease without esophagitis; J45.909 Unspecified asthma, uncomplicated; K57.92 Diverticulitis of intestine, part unspecified, without perforation or abscess without bleeding; Z79.899 Other long term (current) drug therapy; Z79.84 Long term (current) use of oral hypoglycemic drugs; Z88.8 Allergy status to other drugs, medicaments and biological substances; Z88.2 Allergy status to sulfonamides

== ENCOUNTER → 2024-03-18 | Outpatient (CLI) | payer MEDICARE ==
[~2024-03-18] MED LIST changes: +ARIP1TAB4; +ASPI81TA26 PO; +FAMO40TA3; +HOLTER MONITOR XX; +NAPR-885; +ONDA-282 PO; +SUMA50TA2; +TIZA10TA; +TOPI-21
== END ==
LOC: M EKG 13:29
PROVIDERS: ATTEND Hospitalist
DX: R00.2 Palpitations (principal)

== ENCOUNTER → 2024-09-07 | Outpatient (CLI) | payer MEDICARE ==
[~2024-09-07] MED LIST changes: +ARIP1TAB4; +FAMO40TA3; +NAPR-885; +ONDA-282 PO; +SUMA50TA2; +TIZA10TA; +TOPI-21
== END ==
LOC: M WHC 14:40
PROVIDERS: ATTEND Family Medicine
DX: Z12.31 Encounter for screening mammogram for malignant neoplasm of breast (principal); R92.323 Mammographic fibroglandular density, bilateral breasts

== ENCOUNTER → 2024-12-07 | Outpatient (CLI) | payer MEDICARE ==
[2024-12-07 18:01] LABS: BASO # 0.1 10^3/uL (0.0-0.2); BASO % 0.6 % (0.0-1.0); EOS # 0.5 10^3/uL (0.0-0.5); EOS % 6.8 % (0.0-3.0); HEMATOCRIT 38.4 % (36.0-47.0); HEMOGLOBIN 12.8 g/dl (12.0-15.5); LYMPH # 3.1 10^3/uL (1.5-5.0); LYMPH % 39.1 % (24.0-44.0); MEAN CORPUSCULAR HGB CONC 33.3 g/dl (32.0-36.5); MEAN CORPUSCULAR VOLUME 86.9 fl (80.0-96.0); MONO # 0.7 10^3/uL (0.0-0.8); NEUTROPHILS # 3.4 10^3/uL (1.5-8.5); PLATELET COUNT, AUTOMATED 246 10^3/uL (150-450); RED BLOOD COUNT 4.42 10^6/uL (4.00-5.40); WHITE BLOOD COUNT 7.8 10^3/uL (4.0-10.0)
[2024-12-07 18:28] LABS: ALKALINE PHOSPHATASE 117 U/L (35-104); ALT/SGPT 22 U/L (7.0-40); AST/SGOT 10 U/L (<34); BILIRUBIN,TOTAL 0.3 MG/DL (0.3-1.2); BLOOD UREA NITROGEN 15 MG/DL (9-23); CALCIUM LEVEL 10.5 MG/DL (8.3-10.6); CARBON DIOXIDE LEVEL 27 MMOL/L (20-31); CHLORIDE LEVEL 103 MMOL/L (98-107); CREATININE FOR GFR 0.72 MG/DL (0.55-1.30); GLOMERULAR FILTRATION RATE > 60.0 (>45); GLUCOSE, FASTING 193 MG/DL (74-106); POTASSIUM SERUM 4.2 MMOL/L (3.5-5.1); SODIUM LEVEL 138 MMOL/L (136-145); TOTAL PROTEIN 7.2 G/DL (5.7-8.2)
== END ==
LOC: M PLALAB 16:24
PROVIDERS: ATTEND Psychiatry & Neurology Psychiatry
DX: F31.12 Bipolar disorder, current episode manic without psychotic features, moderate (principal); F41.1 Generalized anxiety disorder

== ENCOUNTER 2025-07-24 07:04 | Emergency (ER) | payer MEDICARE ==
[~2025-07-24] VITALS: Ht 165.1 cm; Wt 104.3 kg
[~2025-07-24 07:04] MED LIST changes: +BUPR-670 PO; -BUPR1TAB52 PO; -EQL50TAB2 PO; +HYDR12.510 PO; -HYDR12CA PO; +VITA1TAB82 PO
[2025-07-24] MEDS ORDERED: GLIM2TAB29 (07:25)
[2025-07-24 11:16] LABS: BASO # 0.0 10^3/uL (0.0-0.2); BASO % 0.3 % (0.0-1.0); EOS # 0.4 10^3/uL (0.0-0.5); EOS % 5.7 % (0.0-3.0); LYMPH # 2.2 10^3/uL (1.5-5.0); LYMPH % 32.9 % (24.0-44.0); MONO # 0.7 10^3/uL (0.0-0.8); MONO % 10.4 % (2.0-8.0); NEUTROPHILS # 3.4 10^3/uL (1.5-8.5); NEUTROPHILS % 50.3 % (36.0-66.0); PLATELET COUNT, AUTOMATED 224 10^3/uL (150-450)
[2025-07-24] MEDS: ACETAMINOPHEN 500 MG TAB PO ONE (11:20)
[2025-07-24 11:22] LABS: APPEARANCE, URINE CLEAR (CLEAR); BACTERIA, URINE AUTO NEGATIVE (NEGATIVE); BILIRUBIN, URINE AUTO NEGATIVE (NEGATIVE); BLOOD, URINE BLOOD NEGATIVE (NEGATIVE); GLUCOSE, URINE (UA) AUTO 3+ mg/dL (NEGATIVE); KETONE, URINE AUTO NEGATIVE (NEGATIVE); LEUKOCYTE ESTERASE, URINE AUTO NEGATIVE (NEGATIVE); MUCUS, URINE SMALL (NEGATIVE); NITRITE, URINE AUTO NEGATIVE (NEGATIVE); PROTEIN, URINE AUTO NEGATIVE (NEGATIVE); RBC, URINE AUTO 0 /HPF (0-3); SPECIFIC GRAVITY URINE AUTO 1.014 (1.002-1.035); SQUAMOUS EPITHELIAL CELL UR AU 0 /HPF (0-6); UROBILINOGEN, URINE AUTO 0.2 mg/dL (0.0-2.0); WBC, URINE AUTO 0 /HPF (0-3)
[2025-07-24] MEDS ORDERED: ISOVUE-370 76% 100 ML VIAL As Ordered ONE (11:22)
[2025-07-24 11:38] LABS: CK-MB VALUE MASS 3.1 NG/ML (<3.6); ETHYL ALCOHOL (ETHANOL) < 0.003 % (0.000-0.010)
[2025-07-24 11:40] LABS: ALT/SGPT 25 U/L (7.0-40); AST/SGOT 23 U/L (<34); CALCIUM LEVEL 10.0 MG/DL (8.3-10.6); CARBON DIOXIDE LEVEL 27 MMOL/L (20-31); CHLORIDE LEVEL 103 MMOL/L (98-107); CREATININE FOR GFR 0.80 MG/DL (0.55-1.30); GLOMERULAR FILTRATION RATE 79.2 (>39); POTASSIUM SERUM 3.9 MMOL/L (3.5-5.1); SODIUM LEVEL 142 MMOL/L (136-145)
[2025-07-24 11:41] VITALS: TEMP 97
[2025-07-24 11:59] LABS: CPK CREATINE PHOSPHOKINASE 136 U/L (34-145); MB/CK RELATIVE INDEX 2.27 (< OR =4)
[2025-07-24 13:04] LABS: CK-MB VALUE MASS 2.7 NG/ML (<3.6)
[2025-07-24 13:15] LABS: CPK CREATINE PHOSPHOKINASE 122.0 U/L (34-145); MB/CK RELATIVE INDEX 2.21 (< OR =4)
[2025-07-24 15:53] VITALS: BP 159/86; O2SAT 95
== END 2025-07-24 16:09 | disposition home or self-care (01) ==
LOC: M ED 07:04
DX: S49.91XA Unspecified injury of right shoulder and upper arm, initial encounter (principal); W01.0XXA Fall on same level from slipping, tripping and stumbling without subsequent striking against object, initial encounter; Y92.009 Unspecified place in unspecified non-institutional (private) residence as the place of occurrence of the external cause; Y93.9 Activity, unspecified; Y99.9 Unspecified external cause status; R07.89 Other chest pain; R10.11 Right upper quadrant pain; R10.31 Right lower quadrant pain; M25.551 Pain in right hip; M79.601 Pain in right arm; M79.604 Pain in right leg; M54.2 Cervicalgia; R93.7 Abnormal findings on diagnostic imaging of other parts of musculoskeletal system; M19.071 Primary osteoarthritis, right ankle and foot; D73.4 Cyst of spleen; E27.9 Disorder of adrenal gland, unspecified; N28.1 Cyst of kidney, acquired; K57.30 Diverticulosis of large intestine without perforation or abscess without bleeding; K76.0 Fatty (change of) liver, not elsewhere classified; E11.9 Type 2 diabetes mellitus without complications; E78.5 Hyperlipidemia, unspecified; I10 Essential (primary) hypertension; G47.33 Obstructive sleep apnea (adult) (pediatric); K21.9 Gastro-esophageal reflux disease without esophagitis; K57.92 Diverticulitis of intestine, part unspecified, without perforation or abscess without bleeding; J45.909 Unspecified asthma, uncomplicated; Z87.440 Personal history of urinary (tract) infections; Z79.84 Long term (current) use of oral hypoglycemic drugs; Z79.899 Other long term (current) drug therapy; Z88.2 Allergy status to sulfonamides; Z88.8 Allergy status to other drugs, medicaments and biological substances
CPT/HCPCS: 70450; 70486; 71275; 72125; 73030; 73060; 73090; 73130; 73552; 73590; 73630; 73700; 74177; 80047; 80048; 80076; 81001; 82077; 82150; 82550; 82553; 83690; 84484; 85025; 87486; 87581; 87633; 87798; 93005; 93041; 94760; 99285; Q9967